=== PATIENT | male | born 1990 | race Caucasian/White ===

== ENCOUNTER 2017-05-01 12:56 | Emergency (ER) | payer BC, OTHER ==
[~2017-05-01] VITALS: Ht 167.6 cm; Wt 104.3 kg
[2017-05-01] MEDS ORDERED: ONDANSETRON PF 4 MG/2 ML VIAL. IV ONE (13:30)
[2017-05-01] MEDS: HYDROmorphone 2 MG/ML VIAL IV/SQ PRN ×2 (13:32→14:18)
--- NOTE | 2017-05-01 14:03 | RAD ---
Two-view right forearm study Clinical indications: Fell while skating. Pain. Findings: There is a transverse fracture of the midshaft of the right radius. No displacement is seen. There is moderate anterior angulation of the apex of the fracture. No osteolytic process is seen. No dislocation of the elbow joint or wrist joint is seen. IMPRESSION: Posttraumatic fracture of the midshaft of the right radius.
--- NOTE | 2017-05-01 14:39 | RAD ---
Two-view right forearm study Clinical indications: Postreduction of fracture. Findings: Again seen is a mid shaft fracture of the right radius. The previously seen angulation has been reduced. The right forearm is now immobilized in a cast. IMPRESSION: Reduction of midshaft fracture of the right radius.
[2017-05-01] MEDS ORDERED: OXYC-323 PO (14:49)
--- NOTE | 2017-05-01 14:49 | PHYS DOC ---
Past Medical History Past Medical History: GERD Past Surgical History: No Surgical History Alcohol Use: None Drug Use: None Adult General Chief Complaint Chief Complaint: UPPER EXTREMITY INJURY HPI HPI Patient is a 26 year old male who presents with right forearm injury. This took place male prior to arrival. The patient was at a skating rink when the injury occurred. Patient states that he lost his balance while skating and fell back onto his outstretched right hand. Patient states that he felt a snap in his right forearm and states that he started having immediate pain. Patient rates his pain as 7 out of 10 currently. Patient noted an obvious deformity to the forearm after the fall. Patient has not taken any medications to help with the symptoms. Patient did receive an ice pack to apply to the affected area prior to arrival. Patient denies loss of feeling in his right hand. Patient denies any other injuries. Review of Systems Review of Systems Constitutional: Denies fever or chills [] Eyes: Denies change in visual acuity, redness, or eye pain [] HENT: Denies nasal congestion or sore throat [] Musculoskeletal: Right forearm injury [] Integument: Denies rash or skin lesions [] Neurologic: Denies headache, focal weakness or sensory changes [] Current Medications Current Medications Current Medications Medications (Trade) Dose Ordered Sig/Edward Start Time Stop Time Status Last Admin Dose Admin Hydromorphone HCl (Dilaudid) 1 mg PRN Q15MIN PRN 05/01/17 13:30 05/02/17 13:29 05/01/17 14:18 1 MG Ondansetron HCl (Zofran) 4 mg 1X ONCE 05/01/17 13:30 05/01/17 13:31 DC 05/01/17 13:30 4 MG Allergies Allergies Allergies Coded Allergies Type Severity Reaction Last Updated Verified No Known Drug Allergies 05/01/17 No Physical Exam Physical Exam Constitutional: Alert, afebrile, appears in moderate discomfort. [] HENT: Normocephalic, atraumatic, bilateral external ears normal, oropharynx moist, no oral exudates, nose normal. [] Skin: Warm, dry, no erythema, no rash. [] Back: No tenderness, no CVA tenderness. [] Extremities: Mid right forearm deformity, no cyanosis, no clubbing, ROM intact, pulses 2+ in the right upper extremity. [] Neurologic: Alert and oriented X 3, normal motor function, normal sensory function, no focal deficits noted. [] Current Patient Data Vital Signs Vital Signs Date Time Temp Pulse Resp B/P (MAP) Pulse Ox O2 Delivery O2 Flow Rate FiO2 05/01/17 14:58 72 12 137/80 (99) 96 Room Air 05/01/17 13:01 97.7 97.7 EKG EKG Not performed [] Radiology/Procedures Radiology/[place] [id number] IMAGING REPORT Signed PATIENT: ARTURO SAEED ACCOUNT: [id number] : 1990 LOCATION: ER AGE: 26 SEX: M EXAM STATUS: REG ER ORD. PHYSICIAN: NICHOLE CASTILLO MD REASON: right forearm injury PROCEDURE: FOREARM RIGHT Two-view right forearm study Clinical indications: Fell while skating. Pain. Findings: There is a transverse fracture of the midshaft of the right radius. No displacement is seen. There is moderate anterior angulation of the apex of the fracture. No osteolytic process is seen. No dislocation of the elbow joint or wrist joint is seen. IMPRESSION: Posttraumatic fracture of the midshaft of the right radius. DICTATED and SIGNED BY: EMERITA RYAN MD DATE: 05/01/17 1400 CC: NICHOLE CASTILLO MD; KALYAN SCHAFER [address] [id number] IMAGING REPORT Signed PATIENT: ARTURO SAEED ACCOUNT: [id number] : 1990 LOCATION: ER AGE: 26 SEX: M EXAM STATUS: REG ER ORD. PHYSICIAN: NICHOLE CASTILLO MD REASON: postreduction PROCEDURE: FOREARM RIGHT Two-view right forearm study Clinical indications: Postreduction of fracture. Findings: Again seen is a mid shaft fracture of the right radius. The previously seen angulation has been reduced. The right forearm is now immobilized in a cast. IMPRESSION: Reduction of midshaft fracture of the right radius. DICTATED and SIGNED BY: EMERITA RYAN MD DATE: 05/01/17 1235 CC: NICHOLE CASTILLO MD; KALYAN SCHAFER ~ [] Course & Med Decision Making Course & Med Decision Making Pertinent Labs and Imaging studies reviewed. (See chart for details) Patient was given IV Dilaudid for pain. The patient's right forearm was reduced and splinted as outlined in the procedure note. Patient referred to Dr. Payan for follow-up in 5-7 days for reevaluation. Advised return emergency department for any worsening symptoms. Patient voiced understanding and in agreement with treatment plan. Dragon Disclaimer Dragon Disclaimer This electronic medical record was generated, in whole or in part, using a voice recognition dictation system. Departure Departure Impression: Primary Impression: Radius shaft fracture Disposition: HOME, SELF-CARE Condition: IMPROVED Referrals: KALYAN SCHAFER (PCP) WOOD PAYAN MD Patient Instructions: Forearm Fracture Additional Instructions: Follow-up with Dr. Payan of orthopedic surgery in 5 days for reevaluation. Return to the emergency department for any worsening symptoms. Scripts Oxycodone/Apap 5-325 (PERCOCET 5-325 MG TABLET) 1 Each Tablet 1-2 TAB PO Q4-6HRS Y for PAIN, #30 TAB Prov: NICHOLE CASTILLO MD 05/01/17 Problem Qualifiers Primary Impression: Radius shaft fracture Encounter type: initial encounter Fracture type: closed Fracture morphology : transverse Fracture alignment: displaced Laterality: right Qualified Codes: S52.321A - Displaced transverse fracture of shaft of right radius, initial encounter for closed fracture NICHOLE CASTILLO MD May 01, 2017 14:49
[2017-05-01 14:58] VITALS: BP 137/80
== END 2017-05-01 15:31 | disposition home or self-care (01) ==
LOC: ER 12:56
DX: S52.301A Unspecified fracture of shaft of right radius, initial encounter for closed fracture (principal); K21.9 Gastro-esophageal reflux disease without esophagitis; W19.XXXA Unspecified fall, initial encounter; Y93.21 Activity, ice skating; Y92.89 Other specified places as the place of occurrence of the external cause; Y99.8 Other external cause status
CPT/HCPCS: 29125; 73090; 96374; 96375; 96376; 99284; J1170; J2405

== ENCOUNTER 2017-05-18 11:14 | Day surgery (SDC) | payer BC ==
[~2017-05-18] VITALS: Ht 170.2 cm; Wt 108.0 kg
[~2017-05-18 11:14] MED LIST: ALPR2TAB2 PO; CARI350T PO; CITA40TA5 PO; HYDR-2758 PO; HYDROmorphone 2 MG/ML VIAL IV PRN; IV RINGERS,LACTATED 1000ML 1,000 ML IV SCH; LIDOCAINE 1% 1 ML SYRINGE. ID PRN; ONDANSETRON PF 4 MG/2 ML VIAL. IV PRN; OXYC-323 PO; PANT20TA2 PO; fentaNYL PF VIAL 100 MCG/2 ML VIAL IV PRN
[2017-05-18] MEDS ORDERED: KETAMINE HCL 500 MG/10 ML VIAL. ONE (13:48)
[2017-05-18] MEDS ORDERED: MIDAZOLAM HCL/PF 2 MG/2 ML VIAL. ONE (13:48)
[2017-05-18] MEDS ORDERED: ROCURONIUM 50 MG/5 ML VIAL. ONE (13:48)
[2017-05-18] MEDS ORDERED: fentaNYL PF VIAL 100 MCG/2 ML VIAL ONE ×2 (13:48→15:15)
[2017-05-18] MEDS ORDERED: DEXAMETHASONE SOD PHOS 20 MG/5 ML VIAL. ONE (13:50)
[2017-05-18] MEDS ORDERED: LIDOCAINE 2% PF Vial for OR 5 ML VIAL. ONE (13:50)
[2017-05-18] MEDS ORDERED: ONDANSETRON PF 4 MG/2 ML VIAL. ONE (13:50)
[2017-05-18] MEDS ORDERED: 0.9 % SODIUM CHLORIDE 50 ML VIAL. IJ ONE (13:50)
[2017-05-18] MEDS ORDERED: FAMOTIDINE 20 MG/2 ML VIAL ONE (13:50)
[2017-05-18] MEDS ORDERED: PROPOFOL 20 ML IV ONE (13:50)
--- NOTE | 2017-05-18 14:33 | DISCH ---
DISCHARGE INSTRUCTIONS Condition on Discharge Condition on Discharge: Stable Activity After Discharge Activity Instructions for Disc: Other, see below Other activity instructions: fine motor use of right hand only Diet after Discharge Diet after Discharge: Regular Wound Incision Care Wound/Incision Care: Ice to area for comfort, Change dressing Other wound/incision instructi: May remove dressing in 3 days then may shower Contacting the D[facility] after DC Call your doctor for: Concerns you may have Follow-Up Follow up with: Helen 7-10 days WOOD PAYAN MD May 18, 2017 14:33
[2017-05-18] MEDS ORDERED: OXYC-323 PO (14:35)
[2017-05-18] MEDS ORDERED: SEVOFLURANE 61 TO 120 MINUTES. IH ONE (15:41)
[2017-05-18] MEDS ORDERED: GLYCOPYRROLATE 1 MG/5 ML VIAL. ONE (15:41)
[2017-05-18] MEDS ORDERED: NEOSTIGMINE 10 MG/10 ML VIAL. ONE (15:44)
--- NOTE | 2017-05-18 15:55 | PDOC4 ---
Operative Note Operative Note Date of surgery: 05/18/2017 Preoperative diagnosis: Right radial shaft fracture Postoperative diagnosis: Same Procedure: Operative reduction internal fixation right radial shaft fracture Surgeon: Helen Assist: Josette Anesthesia: Gen. endotracheal Estimated blood loss 25 mL Complications: None Operative indications: Patient is a 26-year-old male who injured his right arm a couple of weeks ago was initially splinted and treated nonoperatively but was noted to have more displacement in the shaft of the radius. I went over with him the expected limitations of malalignment in terms of limitation of supination and pronation and the typical operative reduction and internal fixation recommended as a result of the anatomic alignment required to maintain his full motion. We also went over risks benefits postoperative course of the procedure including possibility of infection nonunion nerve or blood vessel damage medical or other anesthetic consultations among others. All his questions were answered consent was obtained and he agrees to proceed with operative evaluation and treatment Operative text: Patient was identified procedure verified after adequate amounts of general endotracheal anesthesia were administered, a tourniquet was placed on the upper arm and the right upper extremity was prepped and draped in standard sterile fashion. After timeout was performed patient procedure identified and verified, the right upper extremity was exsanguinated by Esmarch bandage tourniquet inflated to 250 mmHg an incision was made overlying the fracture site consisting of a volar Chirag approach to the radial shaft. The shaft was exposed neurovascular structures protected and anatomic alignment of the radial shaft fragments was carried out and a 7 hole Silvino small fragment plate was placed with bone-holding forceps and cortices were drilled through the plate with 3.5 fully threaded cortical screws placed through each and excellent fixation was obtained. He had anatomic alignment of the radius and full pronation supination on testing. Also hardware alignment as well as fracture alignment was noted to be anatomic on intraoperative fluoroscopic views. Thorough irrigation carried out normal saline solution closure accomplished with buried Vicryl suture subcuticular Monocryl Steri-Strips and Mastisol sterile soft dressings were applied. Fingers were noted be warm pink find deflation of tourniquet patient was extirpated transferred to postop holding in stable condition having tolerated procedure well. Please note Josette ball was present for the prepping draping assisted in retraction and skin closure WOOD PAYAN MD May 18, 2017 15:55
[2017-05-18] MEDS ORDERED: MORPHINE SULFATE 4 MG/ML DISP.SYRIN. ONE (16:08)
[2017-05-18] MEDS: MORPHINE SULFATE 4 MG/ML DISP.SYRIN. IV PRN ×4 (16:11→16:45)
[2017-05-18] MEDS: PROCHLORPERAZINE 10 MG/2 ML VIAL. IV PRN ×2 (16:11→16:24)
[2017-05-18] MEDS ORDERED: oxyCODONE/APAP 5/325 1 TAB TABLET PO ONE (16:45)
[2017-05-18] MEDS: fentaNYL PF VIAL 100 MCG/2 ML VIAL IV PRN ×4 (16:46→17:41)
[2017-05-18 18:00] VITALS: BP 145/75
== END 2017-05-18 18:09 | disposition home or self-care (01) ==
LOC: SURG 11:14
PROVIDERS: ATTEND Orthopaedic Surgery
DX: S52.391A Other fracture of shaft of radius, right arm, initial encounter for closed fracture (principal); X58.XXXA Exposure to other specified factors, initial encounter; Y93.89 Activity, other specified; Y92.89 Other specified places as the place of occurrence of the external cause; Y99.9 Unspecified external cause status; E66.9 Obesity, unspecified; Z68.25 Body mass index [BMI] 25.0-25.9, adult; K21.9 Gastro-esophageal reflux disease without esophagitis; F41.9 Anxiety disorder, unspecified; F32.9 Major depressive disorder, single episode, unspecified; Z87.39 Personal history of other diseases of the musculoskeletal system and connective tissue; Z72.89 Other problems related to lifestyle; Z88.6 Allergy status to analgesic agent
CPT/HCPCS: 25515; 76000; C1713; J0690; J0780; J1100; J2250; J2270; J2405; J2704; J2710; J3010; J3490; J7120; S0028; J2001

== ENCOUNTER 2017-12-23 11:58 | Emergency (ER) | payer BC ==
[2017-12-23 12:26] LABS: ADD MAN DIFF? NO
[2017-12-23 12:30] LABS: BASO # 0.1 x10^3/uL (0.0-0.2); BASO % 1 % (0-3); BILIRUBIN,URINE NEGATIVE (NEG); CLARITY,URINE CLEAR; COLOR,URINE YELLOW; EOS # 0.1 x10^3/uL (0.0-0.7); EOS % 1 % (0-3); GLUCOSE,URINE NEGATIVE (NEG); HEMOGLOBIN 15.3 g/dL (13.0-17.5); LYMPH % 25 % (24-48); MEAN CORPUSCULAR HEMOGLOBIN 30 pg (25-35); MEAN CORPUSCULAR HGB CONC 34 g/dL (31-37); MEAN CORPUSCULAR VOLUME 89 fL (79-100); MONO # 0.5 x10^3/uL (0.0-1.1); MONO % 6 % (0-9); NEUT # 5.5 x10^3uL (1.8-7.7); NEUT % 67 % (31-73); NITRITE,URINE NEGATIVE (NEG); PLATELET COUNT 158 x10^3/uL (140-400); PROTEIN,URINE NEGATIVE (NEG-TRACE); RED BLOOD COUNT 5.06 x10^6/uL (4.30-5.70); RED CELL DISTRIBUTION WIDTH 12.8 % (11.5-14.5); WHITE BLOOD COUNT 8.2 x10^3/uL (4.0-11.0)
[2017-12-23 12:39] LABS: AMPHETAMINE/METHAMPHETAMINE NEG (NEG); BARBITURATES NEG (NEG); BENZODIAZEPINES POS (NEG); CANNABINOIDS NEG (NEG); COCAINE NEG (NEG); ETHANOL, URINE NEG (NEG); METHADONE NEG (NEG); OPIATES NEG (NEG); PHENCYCLIDINE NEG (NEG)
[2017-12-23 12:43] LABS: MAGNESIUM 2.1 mg/dL (1.8-2.4)
[2017-12-23] MEDS: IV NORMAL SALINE 1000ML BAG 1,000 ML IV (12:44)
[2017-12-23 12:46] LABS: BACTERIA,URINE FEW /HPF (0-FEW)
[2017-12-23 12:54] LABS: ACETAMIN < 2 mcg/ml (10-30); ETHANOL < 10 mg/dL (0-10); SALIC < 2.8 mg/dL (2.8-20.0)
[2017-12-23 13:35] LABS: LACTIC ACID 1.9 mmol/L (0.4-2.0)
[2017-12-23 14:03] LABS: ANION GAP 12 (6-14); BLOOD UREA NITROGEN 21 mg/dL (8-26); BUN/CREATININE RATIO 18 (6-20); CALCIUM 9.1 mg/dL (8.5-10.1); CARBON DIOXIDE 27 mmol/L (21-32); CHLORIDE 103 mmol/L (98-107); CREATININE 1.2 mg/dL (0.7-1.3); GFR 73.2; GLUCOSE 94 mg/dL (70-99); POTASSIUM 3.7 mmol/L (3.5-5.1); SODIUM 142 mmol/L (136-145)
[2017-12-23 14:08] LABS: ALBUMIN/GLOBULIN RATIO 1.2 (1.0-1.7); ALK PHOS 106 U/L (46-116); ALT (SGPT) 77 U/L (16-63); AST (SGOT) 26 U/L (15-37); TOTAL BILIRUBIN 0.3 mg/dL (0.2-1.0); TOTAL PROTEIN 7.3 g/dL (6.4-8.2)
== END 2017-12-23 17:24 | disposition home or self-care (01) ==
LOC: ER 11:58
DX: T42.8X4A Poisoning by antiparkinsonism drugs and other central muscle-tone depressants, undetermined, initial encounter (principal); R40.0 Somnolence; F32.9 Major depressive disorder, single episode, unspecified; K21.9 Gastro-esophageal reflux disease without esophagitis; G89.29 Other chronic pain; M54.5 Low back pain; Z88.5 Allergy status to narcotic agent; Y92.89 Other specified places as the place of occurrence of the external cause
CPT/HCPCS: 36415; 80053; 80307; 80329; 81001; 83605; 83735; 85025; 93005; 96360; 99285-25; G0480; J7030

== ENCOUNTER → 2020-07-02 | Outpatient (CLI) | payer OTHER ==
[2017-12-23 17:15] VITALS: BP 138/70
[~2020-07-02] MED LIST changes: -HYDR-2758 PO; +HYDR-2761 PO; -HYDROmorphone 2 MG/ML VIAL IV PRN; -IV RINGERS,LACTATED 1000ML 1,000 ML IV SCH; -LIDOCAINE 1% 1 ML SYRINGE. ID PRN; -ONDANSETRON PF 4 MG/2 ML VIAL. IV PRN; -OXYC-323 PO; +OXYC1TAB15 PO; -fentaNYL PF VIAL 100 MCG/2 ML VIAL IV PRN
== END | disposition home or self-care (01) ==
LOC: LAB 08:41
PROVIDERS: ATTEND Internal Medicine Gastroenterology
DX: Z01.812 Encounter for preprocedural laboratory examination (principal); R11.2 Nausea with vomiting, unspecified; Z20.828 Contact with and (suspected) exposure to other viral communicable diseases
CPT/HCPCS: U0003-CS

== ENCOUNTER → 2020-07-05 | Day surgery (SDC) | payer OTHER ==
[~2020-07-05] MED LIST changes: +IV RINGERS,LACTATED 1000ML 1,000 ML IV SCH; +PROPOFOL 10 MG/ML (20ML) VIAL. IV ONE
[2020-07-05 09:48] VITALS: BP 150/81
== END | disposition home or self-care (01) ==
LOC: SURG 07:54
PROVIDERS: ATTEND Internal Medicine Gastroenterology
DX: K29.50 Unspecified chronic gastritis without bleeding (principal); Z88.8 Allergy status to other drugs, medicaments and biological substances; Z79.899 Other long term (current) drug therapy
CPT/HCPCS: 43235; J2704

== ENCOUNTER 2021-06-02 06:16 | Emergency (ER) | payer OTHER ==
[2020-07-05 09:48] VITALS: BP 150/81
[~2021-06-02 06:16] MED LIST changes: -IV RINGERS,LACTATED 1000ML 1,000 ML IV SCH; -PROPOFOL 10 MG/ML (20ML) VIAL. IV ONE
== END 2021-06-02 07:43 | disposition left against medical advice (07) ==
LOC: ER 06:16
DX: R10.9 Unspecified abdominal pain (principal); Z53.21 Procedure and treatment not carried out due to patient leaving prior to being seen by health care provider